=== PATIENT | female | born 1990 | race African-American/Black ===

== ENCOUNTER 2017-06-07 02:04 | Emergency (ER) | payer SELFPAY ==
[~2017-06-07] VITALS: Ht 167.6 cm; Wt 62.6 kg
[~2017-06-07 02:04] MED LIST: PRILOSEC20 MG ORAL
--- NOTE | 2017-06-07 02:27 | Emergency Room Report ---
History of Present Illness General Chief Complaint: Female Urogenital Problems Source: Patient Present Illness HPI Is a 27-year-old female who is not sexually active. She presents with chief complaint of vaginal itching. Onset was about 2 weeks ago. She treated vagisil but it wasn't helping. She tried Monistat yesterday and now symptom resolved. Patient here for confirmation. No urinary complaint. Stated that she is still a virgin. Allergies: Coded Allergies: No Known Allergies (Unverified , 09/05/14) Patient History Past Medical History: see triage record, old chart reviewed Past Surgical History: none Pertinent Family History: none Social History: Denies: smoking Last Menstrual Period: 04/10/2017 Now: No - patient stated she is still a virgin : 0 Para: 0 Immunizations: other Reviewed Nursing Documentation: PMH: Agreed; PSxH: Agreed Nursing Documentation-PMH Past Medical History: No Stated History Review of Systems Eye: Denies: eye pain, blurred vision ENT: Denies: ear pain, nose congestion, throat swelling Respiratory: Denies: cough, shortness of breath Cardiovascular: Denies: chest pain, palpitations Gastrointestinal: Denies: abdominal pain, diarrhea, nausea, vomiting Genitourinary: Reports: vag bleed/dc Musculoskeletal: Denies: back pain, joint pain Skin: Denies: rash Neurological: Denies: headache, numbness Endocrine: Denies: increased thirst, increased urine Hematologic/Lymphatic: Denies: easy bruising All Other Systems: negative except mentioned in HPI Physical Exam Vital Signs Date Time Temp Pulse Resp B/P (MAP) Pulse Ox O2 Delivery O2 Flow Rate FiO2 06/07/17 02:10 98.2 68 15 110/63 99 Room Air 98.2 vitals normal Sp02 EP Interpretation: reviewed, normal General Appearance: well appearing, no apparent distress, alert Head: normocephalic, atraumatic Eyes: bilateral eye PERRL, bilateral eye EOMI ENT: hearing grossly normal, normal pharynx Neck: full range of motion, supple, no meningismus Respiratory: chest non-tender, lungs clear, normal breath sounds Cardiovascular #1: regular rate, rhythm, no murmur Gastrointestinal: normal bowel sounds, non tender, no mass, no organomegaly, no bruit, non-distended Musculoskeletal: back normal, gait/station normal, normal range of motion Psychiatric: mood/affect normal Skin: warm/dry Medical Decision Making Diagnostic Impression: Primary Impression: Vaginitis Qualified Codes: N76.0 - Acute vaginitis ER Course Patient presents with a vaginitis that improved with Monistat. This is most likely a yeast infection. Because she is a virgin never had a pelvic exam done before, she was hasn't about doing a pelvic exam here. She says she has extreme difficulty just inserting the Monistat. If her story is true, there is no risk for STDs. Unlikely to be bacterial vaginosis. We'll discharge home. Last Vital Signs Date Time Temp Pulse Resp B/P (MAP) Pulse Ox O2 Delivery O2 Flow Rate FiO2 06/07/17 02:10 98.2 68 15 110/63 99 Room Air 98.2 Status: improved Disposition: HOME, SELF-CARE Condition: Stable Referrals: NOT CHOSEN IPA/,REFERRING (PCP) Additional Instructions: Follow-up your doctor in 3-4 days as needed. Return if symptom worsen. BRYAN CADET M.D. Jun 07, 2017 02:27
[2017-06-07 02:40] LABS: APPEARANCE,URINE SLIGHTLY CLOUDY; BILIRUBIN, URINE NEGATIVE (NEGATIVE); GLUCOSE, URINE (UA) NEGATIVE (NEGATIVE); KETONES,URINE 1+ (NEGATIVE); LEUKOCYTE ESTERASE ,URINE 1+ (NEGATIVE); NITRITE,URINE NEGATIVE (NEGATIVE); PH,URINE 6 (4.5-8.0); PROTEIN,URINE NEGATIVE (NEGATIVE); UROBILINOGEN,URINE NORMAL MG/DL (0.0-1.0)
[2017-06-07 02:43] LABS: COLOR,URINE YELLOW
[2017-06-07 03:04] VITALS: BP 110/63
[2017-06-07 03:40] VITALS: BP 110/63
== END 2017-06-07 03:40 | disposition home or self-care (01) ==
LOC: EMR 02:20
DX: N76.0 Acute vaginitis (principal)
CPT/HCPCS: 81003; 81025; 99282